=== PATIENT | female | born 1950 | race Caucasian/White ===

== ENCOUNTER 2019-12-25 06:34 | Observation (INO) | payer OTHER ==
[2019-12-19 10:30] LABS: BASOPHIL % 0.2 % (0-2); PLATELET COUNT 335 x10^3mcL (130-400); RED CELL DISTRIBUTION WIDTH 13.8 % (11.5-14.5)
[2019-12-19 10:42] LABS: ALBUMIN 3.8 g/dL (3.4-5.0); ALKALINE PHOSPHATASE 73 U/L (46-116); ALT/SGPT 55 U/L (14-59); AST/SGOT 26 U/L (15-37); BILIRUBIN TOTAL 0.3 mg/dL (0.20-1.00); CALCIUM 9.3 mg/dL (8.5-10.1); CARBON DIOXIDE 33.3 mmol/L (21-32); CHLORIDE SERUM 104 mmol/L (98-107); CREATININE SERUM 0.7 mg/dL (0.6-1.0); GFR1 > 60 mL/min; GLUCOSE SERUM 122 mg/dL (74-106); POTASSIUM SERUM 4.8 mmol/L (3.5-5.1); SODIUM SERUM 140 mmol/L (136-145); TOTAL PROTEIN, SERUM 7.7 g/dL (6.4-8.2)
[~2019-12-25] VITALS: Ht 152.4 cm; Wt 72.6 kg
[2019-12-25 07:08] VITALS: BP 155/69
[2019-12-25 21:00] VITALS: BP 112/58
[2019-12-26 05:37] VITALS: BP 132/73
[2019-12-26 07:36] VITALS: BP 141/68
[2019-12-26 10:29] VITALS: BP 141/68
== END 2019-12-26 11:45 | disposition home or self-care (01) ==
LOC: DS 06:34 → OR 10:30 → DS 10:30 → MU 10:33 → DS 19:02 → MU 19:02
PROVIDERS: ADMIT Student in an Organized Health Care Education/Training Program; ATTEND Student in an Organized Health Care Education/Training Program
DX: M17.11 Unilateral primary osteoarthritis, right knee (principal)
CPT/HCPCS: 94150; 97112-GP; G0378; J0690; J1885; J2274; J2405; J7120; U0003